=== PATIENT | female | born 1970 | race Caucasian/White ===

== ENCOUNTER 2017-03-23 00:25 | Emergency (ER) | payer BC, OTHER ==
[~2017-03-23] VITALS: Ht 154.9 cm; Wt 91.5 kg
[~2017-03-23 00:25] MED LIST: CALCIUM-MAGNES1 EA10 PO; CAMBIA50 MG PO; CHILD ASPIRIN81 M1 PO; HEARTBURN RELIE75 MG PO; KLONOPIN0.5 M1 PO; LIORESAL10 MG PO; METAXALONE800 MG PO; MOTRIN800 MG PO; OXAYDO5 MG PO; OXYCODONE HCL10 MG PO; RELPAX40 MG PO; REQUIP2 MG PO; TOPAMAX25 MG PO; WELLBUTRIN XL300 MG PO
[2017-03-23 01:04] LABS: EOSINOPHIL (%) 0.2 % (0-5); HEMATOCRIT 43.7 % (36.0-46.0); IMMATURE GRANULOCYTE (%) 0.7 % (0.0-0.7); IMMATURE GRANULOCYTE COUNT 0.1 K/uL; INSTRUMENT ABS NEUTROPHIL CT 12.1 K/uL; LYMPHOCYTE COUNT 2.3 K/uL (1.0-2.8); MCH 31.2 PG (29.0-34.0); MCHC 34.1 G/DL (30.0-36.0); MCV 91.6 FL (83-99); MEAN PLAT.VOLUME 9.9 uM^3 (9.5-12.4); MONOCYTE (%) 3.6 % (3-12); MONOCYTE COUNT 0.6 K/uL (0-0.8); NEUTROPHIL (%) 80.3 % (45-76); NEUTROPHIL COUNT 12.1 K/uL (1.8-6.4); PLATELET COUNT 310 K/uL (156-360); RBC DIS.WIDTH-CV 12.4 % (11.8-14.6); RBC DIS.WIDTH-SD 41.9 % (39-53); RED BLOOD COUNT 4.77 M/uL (3.80-5.20); WHITE BLOOD COUNT 15.1 K/uL (4.1-10.2)
[2017-03-23 01:16] LABS: CHLORIDE 104 mEq/L (99-109); POTASSIUM 4.3 mEq/L (3.7-5.4); SODIUM 136 mEq/L (136-147)
[2017-03-23 01:17] LABS: ADD MIUA? YES; BILIRUBIN NEGATIVE; BLOOD NEGATIVE; COLOR YELLOW ((YELLOW)); GLUCOSE (STRIP) NEGATIVE; KETONES NEGATIVE; LEUKOCYTES NEGATIVE; NITRITE NEGATIVE; PROTEIN (STRIP) NEGATIVE; SPECIFIC GRAVITY 1.024 (1.000-1.030); UROBILINOGEN 0.2 MG/DL (0.2-1.0)
[2017-03-23 01:18] LABS: GLUCOSE 141 mg/dL (70-99)
[2017-03-23 01:20] LABS: ANION GAP 11 MEQ/L (2-14); TOTAL BILIRUBIN 0.4 mg/dL (0.0-1.0)
[2017-03-23 01:22] LABS: BACTERIA RARE /HPF; EPITHELIAL CELLS RARE /HPF; MUCUS 1+ /LPF; RED BLOOD CELLS 0-5 /HPF (0-5); UCUL ADDED? NO; WHITE BLOOD CELLS 0-5 /HPF (0-5)
[2017-03-23 01:22] LABS: ALKALINE PHOSPHATASE 79 IU/L (3-129); GFR ESTIMATE (CALCULATED) > 59 mL/min/
[2017-03-23 01:23] LABS: UREA NITROGEN (BUN) 14 mg/dL (9-23)
[2017-03-23 01:25] LABS: LIPASE 23 U/L (1.0-51.0)
[2017-03-23 01:31] LABS: QUANTITATIVE HCG < 4.0 MIU/ML
[2017-03-23] MEDS ORDERED: NORCO 5/3251 TABLET PO (04:09)
[2017-03-23] MEDS ORDERED: ZOFRAN4 MG PO (04:09)
[2017-03-23 04:57] VITALS: BP 105/69
== END 2017-03-23 04:58 | disposition home or self-care (01) ==
LOC: EME 00:25
PROVIDERS: Emergency Medicine
DX: K80.20 Calculus of gallbladder without cholecystitis without obstruction (principal); K21.9 Gastro-esophageal reflux disease without esophagitis; E11.9 Type 2 diabetes mellitus without complications; F41.9 Anxiety disorder, unspecified; F32.9 Major depressive disorder, single episode, unspecified; Z87.442 Personal history of urinary calculi; Z79.82 Long term (current) use of aspirin; F17.200 Nicotine dependence, unspecified, uncomplicated; Z88.8 Allergy status to other drugs, medicaments and biological substances
CPT/HCPCS: 74177; 80053; 81003; 83690; 84702; 85025; 99281; 99285; J1885; J2405; J3010; J7030

== ENCOUNTER 2017-03-28 07:46 | Day surgery (SDC) | payer BC, OTHER ==
[~2017-03-28] VITALS: Ht 154.9 cm; Wt 91.6 kg
[~2017-03-28 07:46] MED LIST changes: -HEARTBURN RELIE75 MG PO; +NORCO 5/3251 TABLET PO; +RANITIDINE HCL150 M1 PO; +SKELAXIN800 MG PO; +TOPAMAX100 MG PO; -TOPAMAX25 MG PO; +ZOFRAN4 MG PO
[2017-03-28 08:36] VITALS: BP 123/56
[2017-03-28] MEDS ORDERED: COLACE100 MG PO (12:07)
[2017-03-28] MEDS ORDERED: PERCOCET 5/31 TABLET PO (12:07)
[2017-03-28 13:55] VITALS: BP 133/68
[2017-03-28 14:55] VITALS: BP 115/64
== END 2017-03-28 15:21 | disposition home or self-care (01) ==
LOC: SDC 07:46
PROC: 0FT44ZZ Resection of Gallbladder, Percutaneous Endoscopic Approach (ICD-10-PCS; principal; 2017-03-28)
DX: K80.10 Calculus of gallbladder with chronic cholecystitis without obstruction (principal); F41.8 Other specified anxiety disorders; F17.200 Nicotine dependence, unspecified, uncomplicated; K21.9 Gastro-esophageal reflux disease without esophagitis; B19.10 Unspecified viral hepatitis B without hepatic coma
CPT/HCPCS: 88304; J0131; J0690; J1100; J1885; J2250; J2405; J2710; J3010